=== PATIENT | male | born 1975 | race Hispanic/Latino ===

== ENCOUNTER 2024-01-21 06:50 | Day surgery (SDC) | payer MEDICAID ==
[~2024-01-21] VITALS: Ht 182.9 cm; Wt 99.8 kg
[2024-01-21] VITALS (11 sets, daily range): BP systolic 126–152; BP diastolic 61–80; PULSE 65–72; RESP 15–18
[2024-01-21] MEDS ORDERED: HYDR50TA37 PO (07:27)
[2024-01-21] MEDS ORDERED: CHOL500045 PO (07:27)
[2024-01-21] MEDS ORDERED: SACU1TAB7 PO (07:27)
[2024-01-21] MEDS ORDERED: TEST200V21 IM (07:27)
[2024-01-21] MEDS ORDERED: FOLI0.8T22 PO (07:27)
[2024-01-21] MEDS ORDERED: DIAZ5TAB4 PO (07:27)
[2024-01-21] MEDS ORDERED: CALC0.5C11 PO (07:27)
[2024-01-21] MEDS ORDERED: CINA30TA5 PO (07:27)
[2024-01-21] MEDS ORDERED: ATOR40TA69 PO (07:27)
[2024-01-21] MEDS ORDERED: ASPI-1197 PO (07:27)
[2024-01-21] MEDS ORDERED: CARV12.511 PO (07:27)
[2024-01-21] MEDS ORDERED: DULO30CA52 PO (07:27)
[2024-01-21] MEDS ORDERED: LEVO25CA4 PO (07:27)
[2024-01-21] MEDS: 0.9%NACL 1000ML 1,000 ML IV ONE (07:34)
[2024-01-21] MEDS ORDERED: SODIUM TETRADECYL SULFATE 30 MG/ML 2 ML VIAL IV ONE (08:30)
[2024-01-21] MEDS: ONDANSETRON 4MG INJ ONE ×2 (11:03→11:22)
== END 2024-01-21 11:57 | disposition home or self-care (01) ==
LOC: DAH 06:50
PROVIDERS: ATTEND Surgery
DX: R13.10 Dysphagia, unspecified (principal); K21.9 Gastro-esophageal reflux disease without esophagitis; E66.9 Obesity, unspecified; I12.0 Hypertensive chronic kidney disease with stage 5 chronic kidney disease or end stage renal disease; E10.22 Type 1 diabetes mellitus with diabetic chronic kidney disease; N18.6 End stage renal disease; Z98.84 Bariatric surgery status; Z79.4 Long term (current) use of insulin; Z79.82 Long term (current) use of aspirin; Z79.899 Other long term (current) drug therapy; Z68.34 Body mass index [BMI] 34.0-34.9, adult
CPT/HCPCS: 43236; J7030 ×2; J2405 ×2; J3490; A4620; A4215 ×2; A4223; A4657; A4222; A4221; A4663; A4606

== ENCOUNTER 2024-02-25 07:51 | Day surgery (SDC) | payer MEDICAID ==
[~2024-02-25] VITALS: Ht 182.9 cm; Wt 108.9 kg
[2024-02-25] VITALS (10 sets, daily range): BP systolic 119–166; BP diastolic 57–91; PULSE 62–78; RESP 16–18; TEMP 97.5–98.6
[~2024-02-25 07:51] MED LIST: 0.9%NACL 1000ML 1,000 ML IV ONE; ASPI-1197 PO; ATOR40TA69 PO; CALC0.5C11 PO; CARV12.511 PO; CHOL500045 PO; CINA30TA5 PO; DIAZ5TAB4 PO; DULO30CA52 PO; FOLI0.8T22 PO; HYDR50TA37 PO; LEVO25CA4 PO; SACU1TAB7 PO; SODIUM TETRADECYL SULFATE 30 MG/ML 2 ML VIAL IV ONE; TEST200V21 IM
[2024-02-25] MEDS ORDERED: HYDR100T15 PO (08:43)
[2024-02-25] MEDS ORDERED: proPOFol 10 MG/ML 20ML VIAL IV ONE (10:01)
== END 2024-02-25 11:20 | disposition home or self-care (01) ==
LOC: DAH 07:51 → ENDO 07:51
PROVIDERS: ATTEND Surgery
DX: K21.9 Gastro-esophageal reflux disease without esophagitis (principal); R13.10 Dysphagia, unspecified; E78.5 Hyperlipidemia, unspecified; I12.0 Hypertensive chronic kidney disease with stage 5 chronic kidney disease or end stage renal disease; E11.22 Type 2 diabetes mellitus with diabetic chronic kidney disease; N18.6 End stage renal disease; Z98.84 Bariatric surgery status; Z79.4 Long term (current) use of insulin; Z79.82 Long term (current) use of aspirin; Z79.899 Other long term (current) drug therapy
CPT/HCPCS: 43236; J7030 ×2; J3490 ×2; A4620; A4215 ×2; A4223; A4657; A4222; A4221; A4663; A4606; J2704